=== PATIENT | male | born 1985 | race Two or more races ===

== ENCOUNTER 2024-08-09 00:01 | Emergency (ER) | payer MEDICAID ==
[~2024-08-09] VITALS: Ht 172.7 cm; Wt 90.7 kg
[2024-08-09] MEDS ORDERED: TDAP [DIPH/PERTUSSIS/TET] 0.5 ML VIAL IM ONE (02:46)
[2024-08-09] MEDS ORDERED: CEFEPIME 1 GM VIAL ONE (02:46)
[2024-08-09] MEDS ORDERED: VANCOMYCIN 1 GM /D5W 250 ML PB IV ONE (02:46)
[2024-08-09] MEDS: CEFEPIME 1 GM in IV D5W 50 ML IV ONE (02:55)
[2024-08-09 02:59] LABS: BASOPHILS % (AUTO) 0.6 % (0.0-2.0); EOSINOPHILS # (AUTO) 0.2 K/uL (0.0-0.7); EOSINOPHILS % (AUTO) 3.2 % (0.0-6.0); HEMATOCRIT 38 % (39-51); HEMOGLOBIN 12.8 g/dL (13.5-17.5); LYMPHOCYTES # (AUTO) 1.8 K/uL (0.8-4.8); LYMPHOCYTES % (AUTO) 26.4 % (20.0-44.0); MEAN CORPUSCULAR HEMOGLOBIN 25 PG (26.0-33.0); MEAN CORPUSCULAR HGB CONC 34 g/dl (31.0-36.0); MEAN CORPUSCULAR VOLUME 74 fL (80-96); MONOCYTES # (AUTO) 0.5 K/uL (0.1-1.30); MONOCYTES % (AUTO) 7.3 % (2.0-12.0); NEUTROPHILS # (AUTO) 4.2 K/uL (1.8-8.9); NEUTROPHILS % (AUTO) 62.5 % (43.0-81.0); PLATELET COUNT (AUTO) 193 K/uL (150-450); RED BLOOD CELL COUNT(AUTO) 5.11 MIL/uL (4.5-6.0); RED CELL DISTRIBUTION WIDTH 16.6 % (11.5-15.0); WHITE BLOOD COUNT (AUTO) 6.8 K/uL (4.3-11.0)
[2024-08-09 03:02] LABS: ERYTHROCYTE SEDIMENTATION RATE 8 MM/HR (0-15)
[2024-08-09] MEDS: TDAP [DIPH/PERTUSSIS/TET] 0.5 ML VIAL IM ONE (03:05)
[2024-08-09] MEDS: VANCOMYCIN 1 GM in IV D5W 250 ML IV ONE (03:10)
[2024-08-09 03:12] LABS: INR 0.96 (0.91-1.10); PARTIAL THROMBOPLASTIN TIME 24.8 SEC (24.3-34.3); PROTHROMBIN TIME 10.2 SECS (9.2-11.1)
[2024-08-09 03:52] LABS: CALCIUM, SERUM 8.7 mg/dL (8.5-10.1); CREATININE 0.9 mg/dL (0.6-1.3); POTASSIUM 3.8 mmol/L (3.5-5.1)
[2024-08-09 05:14] LABS: C-REACTIVE PROTEIN 0.27 mg/dL (0.0-0.30)
[2024-08-09] MEDS ORDERED: METFORMIN 500 MG TABLET ONE (08:28)
[2024-08-09] MEDS ORDERED: LISINOPRIL (20MG) 20 MG TABLET ONE (08:29)
[2024-08-09] MEDS: METFORMIN 500 MG TABLET PO ONE (08:30)
[2024-08-09] MEDS: LISINOPRIL (20MG) 20 MG TABLET PO SCH (08:30)
[2024-08-09 08:34] VITALS: BP 178/99; TEMP 98.3; O2SAT 99
== END 2024-08-09 08:35 | disposition short-term general hospital (02) ==
LOC: ER 00:04
DX: L02.512 Cutaneous abscess of left hand (principal); L03.012 Cellulitis of left finger; I10 Essential (primary) hypertension; E11.9 Type 2 diabetes mellitus without complications
CPT/HCPCS: 99291; 96365; 96375; 90471; 90715; 73140; 84145; 85025; 80048; 87040; 85652; 36415; 85730; 86140; J3370 ×2; J7060 ×2; A4223; J0692 ×2